=== PATIENT | female | born 1950 | race Hispanic/Latino ===

== ENCOUNTER 2019-05-03 17:52 | Inpatient (IN) | payer MEDICARE ==
[~2019-05-03] VITALS: Ht 157.5 cm; Wt 74.8 kg
[~2019-05-03 17:52] MED LIST: AMLO10TA7 PO; ESOM40CA PO; LEVO500T2 PO; LEVO75TA10 PO; LORA10TA7 PO; METO50TA18 PO; METR500T PO; MONT10TA24 PO; ONDA8TAB12 PO; PRAV20TA4 PO; TRAM50TA4 PO
[2019-05-03 18:55] LABS: BASOPHILS % (AUTO) 0.2 % (0.0-5.0); HEMATOCRIT 32.3 % (36-48); LYMPHOCYTES % (AUTO) 3.2 % (21.0-51.0); MEAN CORPUSCULAR HEMOGLOBIN 30.1 pg (27.0-33.0); MEAN CORPUSCULAR HGB CONC 34.4 g/dL (32.0-36.0); MEAN CORPUSCULAR VOLUME 87.5 fL (79-99); MONOCYTES % (AUTO) 3.7 % (3.0-13.0); NEUTROPHILS % (AUTO) 92.9 % (40.0-77.0); NUCLEATED RED BLOOD CELLS 0.1 % (0.0-0.19); PLATELET COUNT (AUTO) 181 K/uL (130-400); RED BLOOD CELL COUNT(AUTO) 3.69 MIL/uL (4.00-5.50); RED CELL DISTRIBUTION WIDTH 13.7 % (11.0-15.5); WHITE BLOOD COUNT (AUTO) 6.9 K/uL (4.8-10.8)
[2019-05-03 19:30] LABS: ALANINE AMINOTRANSFERASE 13 U/L (12-78); ALBUMIN 3.2 g/dL (3.5-5.0); ASPARTATE AMINOTRANSFERASE 23 U/L (10-37); BILIRUBIN,TOTAL 0.6 mg/dL (0.2-1.0); CARBON DIOXIDE 27 mmol/L (21-32); CHLORIDE 96 mmol/L (101-111); CREATINE KINASE, TOTAL 44 U/L (21-232); GLOMERULAR FILTR. RATE CALC 59 mL/min (>60); GLUCOSE,RANDOM 106 mg/dL (70-105); MYOGLOBIN 65 ng/mL (10-92); SODIUM SERUM 135 mmol/L (136-145); TROPONIN I < 0.04 ng/mL (0.00-0.06); UREA NITROGEN, BLOOD 14 mg/dL (7-18)
[2019-05-03 19:33] LABS: POTASSIUM 2.9 mmol/L (3.5-5.1)
[2019-05-03 19:35] LABS: APPEARANCE,URINE Clear (CLEAR); BILIRUBIN,URINE Negative (NEGATIVE); COLOR,URINE Yellow (YELLOW); GLUCOSE, URINE (UA) Negative (NEGATIVE); KETONES,URINE 15 mg/dL (NEGATIVE); LEUKOCYTE ESTERASE ,URINE Trace (NEGATIVE); NITRATE,URINE Negative (NEGATIVE); OCCULT BLOOD,URINE Moderate (NEGATIVE); PROTEIN,URINE Trace mg/dL (NEGATIVE); UROBILINOGEN,URINE 0.2 mg/dL (0.2-1.0)
[2019-05-03 19:40] LABS: INR 1.11 (0.85-1.15); PROTHROMBIN TIME 11.6 SEC (9.6-11.6)
[2019-05-03 19:42] LABS: BACTERIA,URINE Few /HPF (None Seen); MUCUS,URINE Few LPF (None Seen)
[2019-05-03] MEDS ORDERED: POTASSIUM CHLORIDE 20 MEQ ERTAB PO ONE (19:51)
[2019-05-03] MEDS ORDERED: SODIUM CHLORIDE 0.9% 1000ML 1,000 ML IV ONE (21:15)
[2019-05-03] MEDS ORDERED: IOHEXOL-350 75 ML VIAL IV ONE (21:59)
[2019-05-03] MEDS ORDERED: ZOSYN 3.375GM+NS 50ML 50 ML IV ONE (22:11)
[2019-05-04] MEDS ORDERED: LIDOCAINE HCL-MPF 1% 2ML VIAL IV PRN
[2019-05-04] MEDS ORDERED: POTASSIUM CHLORIDE 10% ELIXIR 20 MEQ/15 ML UDCUP PO PRN
[2019-05-04] MEDS ORDERED: POTASSIUM CHLORIDE 20MEQ/100ML 100 ML IV PRN
--- NOTE | 2019-05-04 03:15 | NUR ---
Admission Assessment Received pt fro ED with daughter around per wheelchair, routine admission assessment done, plan of care discuss, confirmed awareness of all test done in Ed. Pt made aware since her Potassium level was low, I will initiated Potassium protocol, she will be given 1 dose of IVPB Potassium coverage & since reported given in ED K+ 40meq, post Potassium infusion, I will have all her AM blood draws done by 0700. [address] pt [address] Aguilar just recently stop her from taking K+ & Mg supplement as it goes down when he was still actively on Chemo & radiation treatment that was completed February of this year. Pt claimed has been having fever x 3 days on & off reason of her coming in. Pt right breast also noted with some discoloration more on the breast fold area with a point 0.5 CM skin tear pt claimed secondary to radiation therapy. Re: vaccination, stated she prefers to get her Flu shot at Dr. Aguilar's office, current with the Pneumonia vaccination last year.
[2019-05-04 03:30] VITALS: BP 145/76
[2019-05-04] MEDS: SODIUM CHLORIDE 0.9% 1000ML 1,000 ML IV SCH ×2 (03:48→15:18)
[2019-05-04] MEDS ORDERED: [UNRECOGNIZED DRUG - OTHER] PO (04:00)
[2019-05-04] MEDS ORDERED: IRON1CAP32 PO (04:00)
[2019-05-04] MEDS: ZOSYN 3.375GM+NS 50ML 50 ML IV SCH ×3 (06:50→21:25)
[2019-05-04 07:20] LABS: BASOPHILS % (AUTO) 0.2 % (0.0-5.0); EOSINOPHILS % (AUTO) 0.2 % (0.0-8.0); HEMATOCRIT 29.2 % (36-48); LYMPHOCYTES % (AUTO) 6.7 % (21.0-51.0); MEAN CORPUSCULAR HEMOGLOBIN 30.1 pg (27.0-33.0); MEAN CORPUSCULAR HGB CONC 34.7 g/dL (32.0-36.0); MEAN CORPUSCULAR VOLUME 86.5 fL (79-99); MONOCYTES % (AUTO) 5.9 % (3.0-13.0); PLATELET COUNT (AUTO) 169 K/uL (130-400); RED BLOOD CELL COUNT(AUTO) 3.37 MIL/uL (4.00-5.50); WHITE BLOOD COUNT (AUTO) 5.6 K/uL (4.8-10.8)
[2019-05-04 07:36] LABS: ALBUMIN 2.8 g/dL (3.5-5.0); BILIRUBIN,TOTAL 0.4 mg/dL (0.2-1.0); CREATININE 0.9 mg/dL (0.5-1.5); MAGNESIUM 1.5 mg/dL (1.80-2.40); POTASSIUM 3.5 mmol/L (3.5-5.1); TOTAL PROTEIN, SERUM 6.4 g/dL (6.0-8.3)
[2019-05-04 08:00] VITALS: BP 119/75
--- NOTE | 2019-05-04 08:00 | NUR ---
NOTE PATIENT CAME IN LAST NIGHT WITH FEVERS. SHE HAS BEEN RECEIVING CHEMOTHERAPY FOR DX BREAST CANCER. SHE HAS BLOOD CULTURES FROM PORTACATH AND PERIPHERAL STICK. PENDING RESULTS. WILL CONSULT DR APARICIO HER ONCOLOGIST. OTEHRWISE IVF AND IV ABX AND POTASSIUM PROTOCOL FOR NOW.UNDERSTANDS PLAN OF CARE.
[2019-05-04] MEDS: FAMOTIDINE 20MG TAB 20 MG TAB PO SCH ×2 (08:57→21:09)
[2019-05-04] MEDS: MAGNESIUM 2GM PREMIX 50ML 50 ML IV PRN (08:57)
[2019-05-04] MEDS: POTASSIUM CHLORIDE 20 MEQ ERTAB PO PRN ×2 (08:57→12:42)
[2019-05-04 11:00] VITALS: BP 125/63
[2019-05-04] MEDS ORDERED: MAGNESIUM 2GM PREMIX 50ML 50 ML IV PRN (11:00)
[2019-05-04] MEDS ORDERED: ACETAMINOPHEN 325 MG TAB PO PRN (11:00)
[2019-05-04] MEDS ORDERED: ENOXAPARIN SODIUM 30 MG/0.3 ML SQ SCH (11:00)
[2019-05-04 16:00] VITALS: BP 144/63
--- NOTE | 2019-05-04 17:06 | NUR ---
cm note met with patient and states resides athome with spouse, independent with ambulation and adls. no dme. pt drives. dc plan is back home , no dc needs. Addendum: 05/04/19 at 1708 by KELLY HOLT CM Amended: Links added.
--- NOTE | 2019-05-04 19:00 | NUR ---
NOTE REMAINED AFEBRILE DURING THE DAY AND SHE WAS NOT SEEN BY DR CABRERA TODAY. WILL BE SEEN BY DR APARICIO IN AM. OTHERWISE NO COMPLAINS OR DISCOMFORT VOICED.
[2019-05-04 19:56] VITALS: BP 115/66
[2019-05-04] MEDS: METOPROLOL TARTRATE 50 MG TAB PO SCH (21:09)
[2019-05-04] MEDS: ATORVASTATIN CALCIUM 10 MG TABLET PO SCH (21:10)
[2019-05-04 23:38] VITALS: BP 132/52
[2019-05-05 04:00] VITALS: BP 113/51
[2019-05-05] MEDS: ZOSYN 3.375GM+NS 50ML 50 ML IV SCH ×3 (05:30→22:10)
[2019-05-05] MEDS: LEVOTHYROXINE 75 MCG TABLET PO SCH (06:36)
[2019-05-05] MEDS: POTASSIUM CHLORIDE 20 MEQ ERTAB PO PRN (06:37)
[2019-05-05 07:23] LABS: HEMATOCRIT 29.3 % (36-48); MEAN CORPUSCULAR HGB CONC 34.6 g/dL (32.0-36.0); MEAN CORPUSCULAR VOLUME 86.8 fL (79-99); NUCLEATED RED BLOOD CELLS 0.1 % (0.0-0.19); PLATELET COUNT (AUTO) 170 K/uL (130-400); RED BLOOD CELL COUNT(AUTO) 3.37 MIL/uL (4.00-5.50); RED CELL DISTRIBUTION WIDTH 13.6 % (11.0-15.5); WHITE BLOOD COUNT (AUTO) 3.8 K/uL (4.8-10.8)
[2019-05-05] MEDS: FAMOTIDINE 20MG TAB 20 MG TAB PO SCH ×2 (07:47→20:33)
[2019-05-05 07:50] LABS: CREATININE 0.8 mg/dL (0.5-1.5); POTASSIUM 3.1 mmol/L (3.5-5.1)
[2019-05-05 08:00] VITALS: BP 145/65
[2019-05-05] MEDS ORDERED: MONTELUKAST SODIUM 10 MG TAB PO SCH ×2 (09:00→21:00)
[2019-05-05] MEDS: ENOXAPARIN SODIUM 30 MG/0.3 ML SQ SCH (09:00)
[2019-05-05] MEDS ORDERED: LORATADINE 10 MG TABLET PO SCH ×2 (09:00→21:00)
[2019-05-05] MEDS ORDERED: AMLODIPINE BESYLATE 5 MG TAB PO SCH ×2 (09:00→18:00)
[2019-05-05] MEDS: SODIUM CHLORIDE 0.9% 1000ML 1,000 ML IV SCH ×2 (09:16→20:34)
[2019-05-05] MEDS: METOPROLOL TARTRATE 50 MG TAB PO SCH ×2 (09:18→20:33)
[2019-05-05] MEDS ORDERED: POTASSIUM CHLORIDE 20 MEQ ERTAB PO SCH (11:45)
[2019-05-05 12:00] VITALS: BP 119/60
[2019-05-05] MEDS: MAGNESIUM 2GM PREMIX 50ML 50 ML IV PRN (12:07)
[2019-05-05 16:00] VITALS: BP 116/73
[2019-05-05 19:00] VITALS: BP 139/57
[2019-05-05] MEDS: ATORVASTATIN CALCIUM 10 MG TABLET PO SCH (20:33)
[2019-05-05 23:33] VITALS: BP 134/66
[2019-05-06 03:31] VITALS: BP 120/66
[2019-05-06 04:50] LABS: CREATININE 0.7 mg/dL (0.5-1.5); POTASSIUM 3.4 mmol/L (3.5-5.1)
[2019-05-06 04:53] LABS: HEMATOCRIT 28.1 % (36-48); MEAN CORPUSCULAR HEMOGLOBIN 30.6 pg (27.0-33.0); MEAN CORPUSCULAR HGB CONC 35.6 g/dL (32.0-36.0); MEAN CORPUSCULAR VOLUME 85.9 fL (79-99); NUCLEATED RED BLOOD CELLS 0.1 % (0.0-0.19); PLATELET COUNT (AUTO) 185 K/uL (130-400); RED BLOOD CELL COUNT(AUTO) 3.27 MIL/uL (4.00-5.50); WHITE BLOOD COUNT (AUTO) 3.3 K/uL (4.8-10.8)
[2019-05-06] MEDS: SODIUM CHLORIDE 0.9% 1000ML 1,000 ML IV SCH (05:35)
[2019-05-06] MEDS: LEVOTHYROXINE 75 MCG TABLET PO SCH (06:20)
[2019-05-06] MEDS: ZOSYN 3.375GM+NS 50ML 50 ML IV SCH (06:20)
[2019-05-06] MEDS: FAMOTIDINE 20MG TAB 20 MG TAB PO SCH (07:51)
[2019-05-06] MEDS: METOPROLOL TARTRATE 50 MG TAB PO SCH (07:51)
[2019-05-06] MEDS: ENOXAPARIN SODIUM 30 MG/0.3 ML SQ SCH (07:52)
[2019-05-06 07:54] VITALS: BP 123/59
[2019-05-06 07:58] LABS: BASOPHILS % (MANUAL) 2 % (0-2); EOSINOPHILS % (MANUAL) 1 % (1-6); LYMPHOCYTES % (MANUAL) 22 % (22-44); MAN.DIFF COMMENT-IMPRESSION MANUAL DIFFERENTIAL; MONOCYTES % (MANUAL) 7 % (2-9); PLATELET MORPHOLOGY COMMENT ADEQUATE; SEGMENTED NEUTROPHILS % 68 % (40-70)
[2019-05-06] MEDS: POTASSIUM CHLORIDE 20 MEQ ERTAB PO PRN (08:01)
[2019-05-06] MEDS ORDERED: INTEGRA PLUS PO SCH (09:00)
[2019-05-06] MEDS ORDERED: POTA10CA44 PO (09:50)
--- NOTE | 2019-05-06 11:42 | NUR ---
DISCHARGE PATIENT GIVEN DISCHARGE INSTRUCTIONS VIA TEACH BACK. 18G PIV TO LAC DISCONTINUED, TIP INTACT. POTASSIUM FAXED TO [facility] IN [place]. PATIENT TO FOLLOW UP WITH DR. APARICIO ON SUNDAY. PATIENT WHEELED DOWN STAIRS TO LOBBY BY KULDEEP OCONNELL. PATIENT STABLE AT THIS TIME.
== END 2019-05-06 11:50 | disposition home or self-care (01) | DRG 690 ==
LOC: EDH 17:52 → EDHIP 05-04 → 4BH 05-04 02:49
PROVIDERS: ADMIT Family Medicine; ATTEND Family Medicine
DX: N39.0 Urinary tract infection, site not specified (principal); E83.42 Hypomagnesemia; K21.9 Gastro-esophageal reflux disease without esophagitis; E78.5 Hyperlipidemia, unspecified; I10 Essential (primary) hypertension; E87.6 Hypokalemia; E03.9 Hypothyroidism, unspecified; Z85.3 Personal history of malignant neoplasm of breast; Z83.3 Family history of diabetes mellitus; Z80.0 Family history of malignant neoplasm of digestive organs; Z82.49 Family history of ischemic heart disease and other diseases of the circulatory system; Z90.710 Acquired absence of both cervix and uterus; Z90.49 Acquired absence of other specified parts of digestive tract; Z88.2 Allergy status to sulfonamides; Z88.8 Allergy status to other drugs, medicaments and biological substances
CPT/HCPCS: 36415; 71046; 71275; 80048; 80053; 81001; 82550; 83605; 83735; 83874; 84145; 84484; 85025; 85027; 85610; 85730; 87040; 87088; 87804; 87880; 93005; G0378; J1650; J2543; J3475; J3480; J3490; J7030; Q9967

== ENCOUNTER → 2023-06-19 | Outpatient (CLI) | payer MEDICARE ==
[~2023-06-19] MED LIST changes: +AMLO-258 PO; -AMLO10TA7 PO; +IRON1CAP32 PO; -LEVO500T2 PO; -METR500T PO; +MONT-39 PO; -MONT10TA24 PO; -ONDA8TAB12 PO; +POTA10CA85 PO; -TRAM50TA4 PO; +[UNRECOGNIZED DRUG - OTHER] PO
[2023-06-19 12:18] LABS: CREATININE 0.7 mg/dL (0.5-1.5); POTASSIUM 3.6 mmol/L (3.5-5.1)
== END | disposition home or self-care (01) ==
LOC: LAB 10:31
PROVIDERS: ATTEND Internal Medicine Cardiovascular Disease
DX: I10 Essential (primary) hypertension (principal); E78.5 Hyperlipidemia, unspecified
CPT/HCPCS: 36415; 80048

== ENCOUNTER → 2023-08-02 | Outpatient (CLI) | payer MEDICARE ==
[2023-08-02 16:20] LABS: CREATININE 0.8 mg/dL (0.5-1.5); POTASSIUM 3.9 mmol/L (3.5-5.1)
== END | disposition home or self-care (01) ==
LOC: LAB 12:00
PROVIDERS: ATTEND Internal Medicine Cardiovascular Disease
DX: I10 Essential (primary) hypertension (principal)
CPT/HCPCS: 36415; 80048

== ENCOUNTER 2024-11-22 18:12 | Emergency (ER) | payer BC, MEDICARE ==
[~2024-11-22] VITALS: Ht 157.5 cm; Wt 86.2 kg
[~2024-11-22 18:12] MED LIST changes: +CALCIUM MINI PO; +DOCU-116 PO; +FLUT15.845 NASAL; +GABA-529 PO; -IRON1CAP32 PO; +METH-662 PO; +METO-391 PO; -METO50TA18 PO; -POTA10CA85 PO; +TRAM50TA4 PO; -[UNRECOGNIZED DRUG - OTHER] PO
[2024-11-22 18:13] VITALS: BP 145/81; PULSE 90; RESP 14; TEMP 98.7
--- NOTE | 2024-11-22 18:33 | ERN ---
ED Note History of Present Illness Stated Complaint: LEFT SHOULDER PAIN Chief Complaint: Shoulder Injury/Pain Time Seen by MD: 18:17 Dictation: PATIENT IS A 74-YEAR-OLD FEMALE COMING IN TODAY WITH COMPLAINTS OF LEFT SHOULDER PAIN THAT HAS BEEN ON AN OFF FOR THE LAST ONE MONTH. SHE STATES IT STARTS AT THE BASE OF THE NECK AND RUNS DOWN TO HER SHOULDER WORSE WITH RANGE OF MOTION OR ABDUCTION. NO TRAUMA DOES HAVE A HISTORY OF ARTHRITIS. SHE STATES SHE HAS ALREADY BEEN TO A LOCAL URGENT CARE WHO DID X-RAYS AND TOLD HER SHE HAD DEGENERATIVE CHANGES, SHE DOES NOT HAVE A FOLLOW UP APPOINTMENT WITH HER ORTHOPEDIC SURGEON UNTIL THE . SHE IS CONCERNED TONIGHT THOUGH THAT SHE HAS PAIN THAT INTERMITTENTLY RADIATES TO THE LEFT LATERAL CHEST AREA. HER DAUGHTER, IS CONCERNED THAT MAYBE CARDIAC TODAY. NO NAUSEA VOMITING NO SOB NO JAW PAIN Allergies: Coded Allergies: Sulfa (Sulfonamide Antibiotics) (Verified Allergy, Unknown, 02/22/18) Home Meds Active Scripts Methocarbamol (Robaxin) 750 Mg Tab, 500 MG PO TID, #15 TAB 0 Refills Prov:KP JOE MD 11/13/23 Gabapentin (Gabapentin) 100 Mg Capsule, 100 MG PO TID, #15 CAP 0 Refills Prov:KP JOE MD 11/13/23 Docusate Sodium (Colace) 100 Mg Capsule, 100 MG PO BID, #30 CAP 0 Refills Prov:KP JOE MD 11/13/23 Tramadol Hcl (Tramadol HCl) 50 Mg Tablet, 50 MG PO Q6HPRN PRN for PAIN, #28 TAB 0 Refills Prov:KP JOE MD 11/13/23 Reported Medications Fluticasone Propionate (Fluticasone Propionate) 50 Mcg/Actuation [place].susp, 1 SPRAY NASAL AD PRN for CONGESTION 11/08/23 [Calcium Mini] No Conflict Check, 2 TAB PO BID 11/08/23 Metoprolol Succinate (Metoprolol Succinate) 50 Mg Tab.er.24h, 50 MG PO BID, TAB 11/08/23 Montelukast Sodium (Montelukast Sodium) 10 Mg Tablet, 10 MG PO DAILY, TAB 02/22/18 Loratadine (Loratadine) 10 Mg Tablet, 10 MG PO AM, TAB 02/22/18 Pravastatin Sodium (Pravastatin Sodium) 20 Mg Tablet, 20 MG PO HS, TAB 02/22/18 Esomeprazole Magnesium (Nexium) 40 Mg Capsule.dr, 40 MG PO DAILY, CAP 02/22/18 Amlodipine Besylate (Amlodipine Besylate) 10 Mg Tablet, 10 MG PO DAILY, TAB 02/22/18 Levothyroxine Sodium (Levothyroxine Sodium) 75 Mcg Tablet, 75 MCG PO ACBKFST, TAB 02/22/18 Past Medical History Past Medical History: Cancer, Hypertension Additional Past Medical Hx: BREAST CANCER, HERNIA REPAIR Surgical History: Appendectomy, Cholecystectomy History: Not Applicable RN Note Reviewed/Agreed w/PFSH: Yes Review of System Dictation CONSTITUTIONAL: NEGATIVE EXCEPT FOR HPI HEAD/FACE: NEGATIVE EXCEPT FOR HPI EENT: NEGATIVE EXCEPT FOR HPI RESPIRATORY: NEGATIVE EXCEPT FOR HPI GASTROINTESTINAL/ABDOMINAL: NEGATIVE EXCEPT FOR HPI GENITOURINARY: NEGATIVE EXCEPT FOR HPI MUSCULOSKELETAL: NEGATIVE EXCEPT FOR HPI LEFT SHOULDER PAIN RADIATES TO LEFT C HEST INTEGUMENTARY: NEGATIVE EXCEPT FOR HPI NEUROLOGICAL/PSYCH: NEGATIVE EXCEPT FOR HPI HEMATOLOGIC/LYMPHATIC: NEGATIVE EXCEPT FOR HPI ALL SYSTEMS NEGATIVE, EXCEPT NOTED ABOVE. 13 POINT REVIEW OF SYSTEMS ASSESSED AND ALL NEGATIVE EXCEPT FOR ABOVE. Initial Vital Sign VS Vital Signs Date Time Temp Pulse Resp B/P (MAP) Pulse Ox O2 Delivery O2 Flow Rate FiO2 11/22/24 18:13 98.8 90 14 145/81 98 Room Air 0 Physical Exam Dictation VITAL SIGNS REVIEWED GENERAL APPEARANCE: ALERT, ORIENTED X 3, MODERATE ACUTE DISTRESS, WELL DEVELOPED, NOURISHED. HEAD AND FACE: NON-TRAUMATIC. EYES: PERRL, PINK CONJUNCTIVAS, EYELID NO TRAUMA, ANTERIOR CHAMBER WITH ARCUS SENILIS. EARS: PINNAS INTACT AND NO SIGNS OF TRAUMA OR ERYTHEMA EAR CANALS CLEAR AND NO DISCHARGE TM NO ERYTHEMA NOSE: NO DISCHARGE, NO BLEEDING. OROPHARYNX: MOUTH NORMAL, TONGUE PINK, PHARYNX CLEAR,NO ERYTHEMA, TONSILS NO EXUDATES, NO ABSCESSES NOTED, MUCOUS M EMBRANE MOIST NECK: SUPPLE, NON-TENDER, NO THYROMEGALY, NO MASSES, NO JVD, NO BRUITS BREAST:DEFERRED CHEST:NO TENDERNESS, NO CREPITUS, NO PARADOXICAL MOVEMENT, NO RETRACTIONS LUNGS:CLEAR, WELL-VENTILATED, SYMMETRIC, NO RALES, NO WHEEZING, NO RHONCHI, NO STRIDOR, GOOD BREATH SOUNDS BILATERALLY HEART: REGULAR RATE, REGULAR RHYTHM, NO MURMUR, NO GALLOPS VASCULAR: NO PERIPHERAL EDEMA, ABDOMEN: SOFT, POSITIVE BOWEL SOUNDS, NONDISTENDED, NO GUARDING, NONTENDER, NO REBOUND, NO MASSES NO HEPATOMEGALY, NO SPLENOMEGALY, NO BANSAL'S SIGN, NO HERNIAS. RECTAL: DEFERRED GENITAL: DEFERRED NEUROLOGICAL: NORMAL SPEECH, MOTOR FUNCTION INTACT, SENSORY FUNCTION INTACT MUSCULOSKELETAL: NECK NONTENDER, FULL RANGE OF MOTION, BACK NONTENDER, FULL RANGE OF MOTION, EXTREMITIES: DIFFUSE LEFT SHOULDER PAIN FROM PARASPINOUS DOWN TO DELTOID. DECREASED RANGE OF MOTION SECONDARY TO PAIN. SKIN: COLOR PINK, DRY, NO TURGOR, NO RASH, NO LACERATIONS, NO ABRASIONS, NO CONTUSIONS. LYMPHATIC: DEFERRED Results (Laboratory/Radiology) Laboratory/Radiology Laboratory Tests Test 11/22/24 19:08 White Blood Count 6.5 K/uL (4.8-10.8) Red Blood Count 4.31 MIL/uL (4.00-5.50) Hemoglobin 12.5 g/dL (12.0-16.0) Hematocrit 37.1 % (36-48) Mean Corpuscular Volume 86.1 fL (79-99) Mean Corpuscular Hemoglobin 29.0 pg (27.0-33.0) Mean Corpuscular Hemoglobin Concent 33.7 g/dL (32.0-36.0) Red Cell Distribution Width 13.4 % (11.0-15.5) Platelet Count 257 K/uL (130-400) Mean Platelet Volume 9.9 fL (7.5-10.5) Immature Granulocyte % (Auto) 0.3 % (0-1) Neutrophils (%) (Auto) 74.4 % (40.0-77.0) Lymphocytes (%) (Auto) 15.8 % (21.0-51.0) L Monocytes (%) (Auto) 7.2 % (3.0-13.0) Eosinophils (%) (Auto) 1.7 % (0.0-8.0) Basophils (%) (Auto) 0.6 % (0.0-5.0) Neutrophils # (Auto) 4.9 K/uL (1.8-7.7) Lymphocytes # (Auto) 1.0 K/uL (1.0-4.8) Monocytes # (Auto) 0.5 K/uL (0.1-1.0) Eosinophils # (Auto) 0.11 K/uL (0.00-0.70) Basophils # (Auto) 0.04 K/uL (0.00-0.20) Absolute Immature Granulocyte (auto 0.02 K/uL (0-1) Nucleated Red Blood Cells 0.0 % (0.0-0.19) Sodium Level 137 mmol/L (136-145) Potassium Level 3.1 mmol/L (3.5-5.1) L Chloride Level 99 mmol/L (101-111) L Carbon Dioxide Level 33 mmol/L (21-32) H Blood Urea Nitrogen 12 mg/dL (7-18) Creatinine 0.9 mg/dL (0.5-1.0) Glomerular Filtration Rate Calc 68 mL/min (>90) Random Glucose 98 mg/dL (70-105) Total Calcium 8.8 mg/dL (8.5-10.1) Troponin I High Sensitivity 8 ng/L (4-50) Labs Reviewed?: Yes EKG Comment: EKG sinus rhythm/heart rate 78/right bundle branch block/axis normal/no acute change Review of medical record shows patient had sinus rhythm with a right bundle branch block 11/08/2023 No acute changes ED Course ED Course Orders Procedure Category Date Status Time Cbc With Differential LAB 11/22/24 Complete 18:28 Troponin I High LAB 11/22/24 Complete Sensitivity 18:28 12 Lead Ekg Tracing- EKG 11/22/24 Complete Technical 18:28 Basic Metabolic Panel LAB 11/22/24 Complete 18:28 Dexamethasone 4mg/Ml PHA 11/22/24 Complete 1ml Vial (Dexametha 18:30 Hydrocodone/Apap PHA 11/22/24 Complete 5/325 (Mason 5/325mg) 18:30 Potassium Bicarb/Cit PHA 11/22/24 In Process Ac 25meq (K-Lyte Ta 20:00 Current Medications Medications (Trade) Dose Ordered Sig/Fernandez Route PRN Reason Start Time Stop Time Status Last Admin Dose Admin Acetaminophen/ Hydrocodone Bitart (NORco 5/325MG) 1 tab ONCE ONCE PO 11/22/24 18:30 11/22/24 18:32 DC Dexamethasone Sodium Phosphate (dexaMETHasone 4MG/ML 1ML VIAL) 8 mg ONCE ONCE IM 11/22/24 18:30 4/26/25 18:32 DC Potassium Bicarbonate (K-Lyte Tablet Eff 25 Meq Tablet.eff) 25 meq ONCE ONCE PO 11/22/24 20:00 11/22/24 20:01 Vital Signs Date Time Temp Pulse Resp B/P (MAP) Pulse Ox O2 Delivery O2 Flow Rate FiO2 11/22/24 18:13 98.8 90 14 145/81 98 Room Air 0 1999/patient will be discharged home with hypokalemia chronic right shoulder pain. In addition she has a an abnormal EKG with normal troponin . Potassium we will be replaced patient will meet aware she is dehydrated we will need I more fluids. She does not wish to be placed in the hospital and says she has an appointment with her doctor at [facility] Sunday and can not missed the appointment. She was reassured that there has been no acute cardiac event HEART Score Response (Comments) Value Age: > 65yrs (+2) 2 Risk Factors: 3+ risk factors (+2) 2 Initial Troponin: Normal limit (0) 0 Total 4 Medical Decision Making MDM MDM: Differential diagnosis: ACS/AMI/electrolyte imbalance/dehydration/chronic shoulder pain Rationale: Tests considered and ordered secondary to shared decision making include: EKG/labs Previous outside records reviewed: Old ER visits. Risk of complication and/or morbidity or mortality of patient management: None Medications-Per medication reconciliation Need for hospitalization: Patient does not meet criteria for hospitalization. Patient refuses, has not appointment at [facility] Sunday and can not miss appointment. Need for emergency major/minor surgery: No There are no social concerns with this patient. Prescription drug management Tylenol with codeine Prescriptions will include symptomatic care Patient's prior external medical records from other ER visits were reviewed by me as indicated. Prior testing and results from previous visits were reviewed. Prior tests were taken into account with medical decision making and resource utilization, independent historian/historians were used to obtain complete medical history. I independently interpreted the test that were performed, results were reviewed by me and considered findings on radiology if ordered. Medical management and examination interpretation discussions were had by me with other qualified healthcare professionals as indicated for the patient's care. DX & DISP Disposition: Discharge Departure Impression: Primary Impression: Chronic left shoulder pain Additional Impressions: Hypokalemia, Dehydration, Right bundle branch block (RBBB) determined by electrocardiography, Atypical chest pain Condition: Stable Scripts Acetaminophen with Codeine (Acetaminophen-Cod #3 Tablet) 300 Mg-30 Mg Tablet 1 TAB PO Q4H PRN for Moderate to severe, #20 TAB 0 Refills Prov: SRAVANI العراقي NP 11/22/24 Additional Instructions: Follow-up with primary care provider in 1 to 2 days. Take medications as directed here in the emergency room. Okay to continue home medications unless o therwise discussed during your visit in the emergency room today. Return to your nearest emergency room if symptoms worsen or if there is no improvement. Call 911 if you need immediate assistance. Take Tylenol or Motrin [id number] as needed and if no contraindications are present. Increase oral hydration. A wound culture or urine culture was ordered here in the emergency room department please follow-up with primary care provider and advise them to get repeat ports from our facility. If you had any Cedric wrap/splints that were applied here, please do not remove them until you see your primary care or specialty. Continue your medications for your left shoulder pain. Take Tylenol with codeine as needed for severe pain. Increase your water intake. Keep your appointment with your orthopedic surgeon in the next several days or or call orthopedic surgeon for appointment. Referrals: LEANNE GAMA (PCP) FAHEEM TALLEY MD Time of Disposition: 20:01 I have reviewed the case, and I agree with, Diagnosis and Plan SRAVANI العراقي NP Nov 22, 2024 18:33
[2024-11-22 19:12] LABS: BASOPHILS # (AUTO) 0.04 K/uL (0.00-0.20); BASOPHILS % (AUTO) 0.6 % (0.0-5.0); EOSINOPHILS # (AUTO) 0.11 K/uL (0.00-0.70); EOSINOPHILS % (AUTO) 1.7 % (0.0-8.0); HEMATOCRIT 37.1 % (36-48); IMMATURE GRANULOCYTE ABSOLUTE 0.02 K/uL (0-1); LYMPHOCYTES % (AUTO) 15.8 % (21.0-51.0); MEAN CORPUSCULAR HGB CONC 33.7 g/dL (32.0-36.0); MEAN CORPUSCULAR VOLUME 86.1 fL (79-99); MONOCYTES # (AUTO) 0.5 K/uL (0.1-1.0); MONOCYTES % (AUTO) 7.2 % (3.0-13.0); NEUTROPHILS # (AUTO) 4.9 K/uL (1.8-7.7); NEUTROPHILS % (AUTO) 74.4 % (40.0-77.0); PLATELET COUNT (AUTO) 257 K/uL (130-400); RED BLOOD CELL COUNT(AUTO) 4.31 MIL/uL (4.00-5.50); RED CELL DISTRIBUTION WIDTH 13.4 % (11.0-15.5); WHITE BLOOD COUNT (AUTO) 6.5 K/uL (4.8-10.8)
--- NOTE | 2024-11-22 19:16 | EKG ---
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
[2024-11-22 19:20] LABS: CREATININE 0.9 mg/dL (0.5-1.0); POTASSIUM 3.1 mmol/L (3.5-5.1)
[2024-11-22] MEDS ORDERED: ACET-2079 PO (20:02)
[2024-11-22] MEDS: PoTASSium BIcarbonate/CIT AC 25 MEQ TABLET.EFF PO ONE (20:32)
[2024-11-22] MEDS: dexaMETHasone SOD PHOSPHATE 4 MG/ML 1ML VIAL IM ONE (20:32)
[2024-11-22] MEDS: HYDROcodone/APAP 5/325 1 TAB TABLET PO ONE (20:33)
== END 2024-11-22 20:33 | disposition home or self-care (01) ==
LOC: EDH 18:12
DX: G89.29 Other chronic pain (principal); M25.512 Pain in left shoulder; E87.6 Hypokalemia; E86.0 Dehydration; I45.10 Unspecified right bundle-branch block; R07.89 Other chest pain; I10 Essential (primary) hypertension; Z79.899 Other long term (current) drug therapy; Z85.3 Personal history of malignant neoplasm of breast; Z88.2 Allergy status to sulfonamides; Z90.49 Acquired absence of other specified parts of digestive tract; Z98.890 Other specified postprocedural states
CPT/HCPCS: 99284; 84484; 80048; 85025; 36415; 96372; 93005; J1100

== ENCOUNTER 2024-12-18 17:07 | Emergency (ER) | payer MEDICARE ==
[~2024-12-18] VITALS: Ht 152.4 cm; Wt 86.2 kg
[~2024-12-18 17:07] MED LIST changes: +ACET-2079 PO
--- NOTE | 2024-12-18 17:41 | EKG ---
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1950 Requested By: RC MURPHY Order Number: [id number] Reading MD: Shavonne Vazquez Measurements Intervals [place] Rate: 81 P: 30 AK: 155 QRS: -6 QRSD: 154 T: -13 QT: 402 QTc: 485 Interpretive Statements Sinus rhythm Atrial premature complex Sinus pause Right bundle branch block Inferior infarct, age indeterminate Compared to ECG 11/22/2024 19:13:57 Atrial premature complex(es) now present Sinus pause or arrest now present Sinus arrhythmia no longer present Myocardial infarct finding still present Electronically Signed On 12-19-2024 14:47:14 CDT by Shavonne Vazquez Please click the below link to view image of tracing.
--- NOTE | 2024-12-18 17:58 | HMCIMG ---
PORTABLE CHEST RADIOGRAPH INDICATION: cp COMPARISON: 05/03/2019 CTA chest FINDINGS: Heart size is normal. Mild calcific plaque is present along the aortic arch chong. The pulmonary vascularity and nydia appear normal. No abnormal pulmonary parenchymal opacity or consolidation identified. No significant pleural effusion noted. No pneumothorax detected. IMPRESSION: No radiographic evidence for any acute cardiopulmonary process.
[2024-12-18 18:02] LABS: BASOPHILS # (AUTO) 0.04 K/uL (0.00-0.20); BASOPHILS % (AUTO) 0.6 % (0.0-5.0); EOSINOPHILS # (AUTO) 0.08 K/uL (0.00-0.70); EOSINOPHILS % (AUTO) 1.3 % (0.0-8.0); HEMATOCRIT 33.7 % (36-48); IMMATURE GRANULOCYTE ABSOLUTE 0.03 K/uL (0-1); LYMPHOCYTES # (AUTO) 0.9 K/uL (1.0-4.8); LYMPHOCYTES % (AUTO) 13.6 % (21.0-51.0); MEAN CORPUSCULAR HEMOGLOBIN 29.5 pg (27.0-33.0); MEAN CORPUSCULAR HGB CONC 34.4 g/dL (32.0-36.0); MEAN CORPUSCULAR VOLUME 85.8 fL (79-99); MONOCYTES # (AUTO) 0.5 K/uL (0.1-1.0); NEUTROPHILS # (AUTO) 4.8 K/uL (1.8-7.7); PLATELET COUNT (AUTO) 241 K/uL (130-400); RED BLOOD CELL COUNT(AUTO) 3.93 MIL/uL (4.00-5.50); RED CELL DISTRIBUTION WIDTH 13.9 % (11.0-15.5); WHITE BLOOD COUNT (AUTO) 6.3 K/uL (4.8-10.8)
[2024-12-18 18:17] LABS: CREATININE 0.8 mg/dL (0.5-1.0); MAGNESIUM 1.5 mg/dL (1.80-2.40)
[2024-12-18 18:56] LABS: B-TYPE NATRIURETIC PEPTIDE 88 pg/mL (0-100)
--- NOTE | 2024-12-18 19:25 | NUR ---
PT MOVED FORM LOBBY INTO FAST TRACK ASSUMED CARE AT THIS TIME
--- NOTE | 2024-12-18 19:41 | ERN ---
ED Note History of Present Illness Stated Complaint: SKIP PULSE Chief Complaint: Anxiety/Panic Attack Time Seen by MD: 17:10 Time Seen by Midlevel: 17:10 Dictation: The patient is a 74-year-old female with a history of hypertension, hypothyroidism who presents to the emergency department with complaints of palpitations onset 4:30 p.m.. Patient reports that she has been told that she has not arrhythmias sees Dr. Cesar reports she has pauses. Patient denies any chest pain, nausea or vomiting denies shortness of breath. Denies any other associated symptoms. Allergies: Coded Allergies: Sulfa (Sulfonamide Antibiotics) (Verified Allergy, Unknown, 02/22/18) Home Meds Active Scripts Acetaminophen with Codeine (Acetaminophen-Cod #3 Tablet) 300 Mg-30 Mg Tablet, 1 TAB PO Q4H PRN for Moderate to severe, #20 TAB 0 Refills Prov:SRAVANI الع[employer]ي [employer] 11/22/24 Methocarbamol (Robaxin) 750 Mg Tab, 500 MG PO TID, #15 TAB 0 Refills Prov:KP JOE MD 11/13/23 Gabapentin (Gabapentin) 100 Mg Capsule, 100 MG PO TID, #15 CAP 0 Refills Prov:KP JOE MD 11/13/23 Docusate Sodium (Colace) 100 Mg Capsule, 100 MG PO BID, #30 CAP 0 Refills Prov:KP JOE MD 11/13/23 Tramadol Hcl (Tramadol HCl) 50 Mg Tablet, 50 MG PO Q6HPRN PRN for PAIN, #28 TAB 0 Refills Prov:KP JOE MD 11/13/23 Reported Medications Fluticasone Propionate (Fluticasone Propionate) 50 Mcg/Actuation [place].susp, 1 SPRAY NASAL AD PRN for CONGESTION 11/08/23 [Calcium Mini] No Conflict Check, 2 TAB PO BID 11/08/23 Metoprolol Succinate (Metoprolol Succinate) 50 Mg Tab.er.24h, 50 MG PO BID, TAB 11/08/23 Montelukast Sodium (Montelukast Sodium) 10 Mg Tablet, 10 MG PO DAILY, TAB 02/22/18 Loratadine (Loratadine) 10 Mg Tablet, 10 MG PO AM, TAB 02/22/18 Pravastatin Sodium (Pravastatin Sodium) 20 Mg Tablet, 20 MG PO HS, TAB 02/22/18 Esomeprazole Magnesium (Nexium) 40 Mg Capsule.dr, 40 MG PO DAILY, CAP 02/22/18 Amlodipine Besylate (Amlodipine Besylate) 10 Mg Tablet, 10 MG PO DAILY, TAB 02/22/18 Levothyroxine Sodium (Levothyroxine Sodium) 75 Mcg Tablet, 75 MCG PO ACBKFST, TAB 02/22/18 Past Medical History Past Medical History: Cancer, Hypertension Additional Past Medical Hx: BREAST CANCER, HERNIA REPAIR Surgical History: Appendectomy, Cholecystectomy History: Not Applicable RN Note Reviewed/Agreed w/PFSH: Yes Review of System Dictation Constitutional: Negative for fever,chills, and weight loss Eyes: Negative for injury, pain,redness, and discharge ENT: Negative for injury,pain or swelling Cardiovascular: Negative for chest pain,and edema positive for palpitations Respiratory: Negative for shortness of breath, cough, and wheezing, Abdomen/GI: Negative for abdominal pain, nausea, vomiting, diarrhea, and constipation Back: Negative for injury and pain : Negative for injury, bleeding and discharge MS/Extremity: Negative for injury and deformity Skin: Negative for rash, and discoloration Neuro: Negative for headache, weakness, numbness, tingling, and seizure Psych: Negative for suicide ideation, homicidal ideation, and hallucinations Initial Vital Sign VS Vital Signs Date Time Temp Pulse Resp B/P (MAP) Pulse Ox O2 Delivery O2 Flow Rate FiO2 12/18/24 17:11 98.2 94 18 153/71 100 Room Air 12/18/24 20:47 0 21 Physical Exam Dictation Vital Signs reviewed General Appearance: Alert, oriented x 3, no acute distress, well developed, nourished. Head and Face: non-traumatic. Eyes: PERRL, pink conjunctivas, eyelid no trauma, anterior chamber with arcus senilis. Ears: Pinnas intact and no signs of trauma or erythema ear canals clear and no discharge TM no erythema Nose: No discharge, no bleeding. Oropharynx: Mouth normal, tongue pink. pharynx clear,no erythema, tonsils no exudates, no abscesses noted, mucous membrane moist Neck: Supple, non-tender, no thyromegaly, no masses, no JVD, no bruits Breast:Deferred Chest:No tenderness, no crepitus, no paradoxical movement, no retractions Lungs:Clear, well-ventilated, symmetric, no rales, no wheezing, no rhonchi, no stridor, good breath sounds bilaterally Heart: Regular rate, regular rhythm, no murmur, no gallops Vascular: no peripheral edema, Abdomen: Soft, positive bowel sounds, nondistended, no guarding, nontender, no rebound, no masses no hepatomegaly, no splenomegaly, no Peralta's sign, no hernias. Rectal: Deferred Genital: Deferred Neurological: Normal speech, motor function intact, sensory function intact Musculoskeletal: Neck nontender, full range of motion, back nontender, full range of motion, Extremities: nontender, full range of motion Skin: Color pink, dry, no turgor, no rash, no lacerations, no abrasions, no contusions. Lymphatic: Deferred Results (Laboratory/Radiology) Laboratory/Radiology Laboratory Tests Test 12/18/24 17:55 12/18/24 21:15 White Blood Count 6.3 K/uL (4.8-10.8) Red Blood Count 3.93 MIL/uL (4.00-5.50) L Hemoglobin 11.6 g/dL (12.0-16.0) L Hematocrit 33.7 % (36-48) L Mean Corpuscular Volume 85.8 fL (79-99) Mean Corpuscular Hemoglobin 29.5 pg (27.0-33.0) Mean Corpuscular Hemoglobin Concent 34.4 g/dL (32.0-36.0) Red Cell Distribution Width 13.9 % (11.0-15.5) Platelet Count 241 K/uL (130-400) Mean Platelet Volume 9.6 fL (7.5-10.5) Immature Granulocyte % (Auto) 0.5 % (0-1) Neutrophils (%) (Auto) 76.0 % (40.0-77.0) Lymphocytes (%) (Auto) 13.6 % (21.0-51.0) L Monocytes (%) (Auto) 8.0 % (3.0-13.0) Eosinophils (%) (Auto) 1.3 % (0.0-8.0) Basophils (%) (Auto) 0.6 % (0.0-5.0) Neutrophils # (Auto) 4.8 K/uL (1.8-7.7) Lymphocytes # (Auto) 0.9 K/uL (1.0-4.8) L Monocytes # (Auto) 0.5 K/uL (0.1-1.0) Eosinophils # (Auto) 0.08 K/uL (0.00-0.70) Basophils # (Auto) 0.04 K/uL (0.00-0.20) Absolute Immature Granulocyte (auto 0.03 K/uL (0-1) Nucleated Red Blood Cells 0.0 % (0.0-0.19) Sodium Level 134 mmol/L (136-145) L Potassium Level 3.0 mmol/L (3.5-5.1) *L Chloride Level 96 mmol/L (101-111) L Carbon Dioxide Level 31 mmol/L (21-32) Blood Urea Nitrogen 16 mg/dL (7-18) Creatinine 0.8 mg/dL (0.5-1.0) Glomerular Filtration Rate Calc 78 mL/min (>90) Random Glucose 103 mg/dL (70-105) Total Calcium 8.3 mg/dL (8.5-10.1) L Magnesium Level 1.50 mg/dL (1.80-2.40) L Total Creatine Kinase 74 U/L (21-232) # Troponin I High Sensitivity 7 ng/L (4-50) B-Type Natriuretic Peptide 88 pg/mL (0-100) Urine Color COLORLESS (YELLOW) Urine Appearance CLEAR (CLEAR) Urine pH 6.5 (5.0-8.0) Urine Specific [place] 1.002 (1.001-1.031) Urine Protein NEGATIVE mg/dL (NEGATIVE) Urine Glucose (UA) NEGATIVE mg/dL (NEGATIVE) Urine Ketones NEGATIVE mg/dL (NEGATIVE) Urine Occult Blood NEGATIVE (NEGATIVE) Urine Nitrate NEGATIVE (NEGATIVE) Urine Bilirubin NEGATIVE mg/dL (NEGATIVE) Urine Urobilinogen 0.2 mg/dL (0.2-1.0) Urine Leukocyte Esterase NEGATIVE [place]/uL REASON: cp ORDERING PHYSICIAN: RC MURPHY PROCEDURE: CXR1VW - CHEST 1VW PORTABLE CHEST RADIOGRAPH INDICATION: cp COMPARISON: 05/03/2019 CTA chest FINDINGS: Heart size is normal. Mild calcific plaque is present along the aortic arch chong. The pulmonary vascularity and nydia appear normal. No abnormal pulmonary parenchymal opacity or consolidation identified. No significant pleural effusion noted. No pneumothorax detected. IMPRESSION: No radiographic evidence for any acute cardiopulmonary process. Labs Reviewed?: Yes (Sinus rhythm) EKG: (+) rhythm EKG Comment: Date:12/18/2024 Time:1739 Ventricular rate:81 OK interval:155 QRS duration:154 QT/QTc:402 EKG interpretation: Sinus rhythm, right bundle-branch block Reviewed by ED Attending, no STEMI ED Course ED Course Orders Procedure Category Date Status Time Cbc With Differential LAB 12/18/24 Complete 17:22 B-Type Natriuretic LAB 12/18/24 Complete Peptide 17:22 Chest 1vw RAD 12/18/24 Resulted 17:22 12 Lead Ekg Tracing- EKG 12/18/24 Complete Technical 17:22 Magnesium LAB 12/18/24 Complete 17:22 Creatine Kinase, Total LAB 12/18/24 Complete 17:22 Troponin I High LAB 12/18/24 Complete Sensitivity 17:22 Basic Metabolic Panel LAB 12/18/24 Complete 17:22 Urinalysis Profile LAB 12/18/24 Complete 18:38 Potassium Bicarb/Cit PHA 12/18/24 Complete Ac 25meq (K-Lyte Ta 19:00 Magnesium 2gm Premix PHA 12/18/24 In Process 50ml (Magnesium 2gm 19:00 0.9%Nacl 1000ml (Ns PHA 12/18/24 Complete 1000ml) 19:00 Current Medications Medications (Trade) Dose Ordered Sig/Fernandez Route PRN Reason Start Time Stop Time Status Last Admin Dose Admin Magnesium Sulfate 50 ml @ 0 mls/hr PROTOCOL IV 12/18/24 19:00 01/17/25 18:59 12/18/24 20:14 Potassium Bicarbonate (K-Lyte Tablet Eff 25 Meq Tablet.eff) 50 meq ONCE ONCE PO 12/18/24 19:00 12/18/24 19:01 DC 12/18/24 20:13 Sodium Chloride 1,000 ml @ 0 mls/hr ONCE ONCE IV 12/18/24 19:00 12/18/24 19:01 DC 12/18/24 20:13 Vital Signs Date Time Temp Pulse Resp B/P (MAP) Pulse Ox O2 Delivery O2 Flow Rate FiO2 12/18/24 20:47 98.2 88 18 151/67 100 Room Air* 0 21 12/18/24 17:11 98.2 94 18 153/71 100 Room Air Medical Decision Making MDM The patient is a 74-year-old female with a history of hypertension, hypothyroidism who presents to the emergency department with complaints of palpitations onset 4:30 p.m.. Patient reports that she has been told that she has not arrhythmias sees Dr. Cesar reports she has pauses. Patient denies any chest pain, nausea or vomiting denies shortness of breath. Denies any other associated symptoms. CBC showed no leukocytosis, mild normocytic anemia, chemistry showed mild hyponatremia, hypokalemia, mild hypochloremia, hypomagnesemia. Patient's electrolytes were replaced in ER. Patient was given some IV fluids Care was transferred to [facility] at 8:00 p.m. on 12/18/2024. Patient was rehydrated with IV fluids, p.o., 2 g of magnesium was given IV. Patient will be discharged home with a strict return precautions Differential diagnosis: Tachyarrhythmia, electrolyte imbalance, anxiety, ACS, dehydration Need for hospitalization: Patient does not meet criteria for hospitalization. There are no social concerns with this patient. DX & DISP Disposition: Discharge Departure Impression: Primary Impression: Mild dehydration Additional Impressions: Hypokalemia, Hypomagnesemia Condition: Stable Referrals: LEANNE GAMA (PCP) I have reviewed the case, and I agree with, Diagnosis and Plan I performed the substantive portion of the visit. I have reviewed and per sonally made and approve the management plan that is documented in the note by myself or the GUERO. I acknowledge for responsibility for the patient's management plan. RC MURPHY December 18, 2024 19:40 AVIS KING December 18, 2024 21:38
[2024-12-18] MEDS: PoTASSium BIcarbonate/CIT AC 25 MEQ TABLET.EFF PO ONE (20:13)
[2024-12-18] MEDS: 0.9%NACL 1000ML 1,000 ML IV ONE (20:13)
[2024-12-18] MEDS: MAGNESIUM 2GM PREMIX 50ML 50 ML IV SCH (20:14)
[2024-12-18 20:47] VITALS: BP 151/67; PULSE 88; RESP 18; TEMP 98.2; O2SAT 100
[2024-12-18 21:28] LABS: APPEARANCE,URINE CLEAR (CLEAR); BILIRUBIN,URINE NEGATIVE (NEGATIVE); COLOR,URINE COLORLESS (YELLOW); GLUCOSE, URINE (UA) NEGATIVE (NEGATIVE); KETONES,URINE NEGATIVE (NEGATIVE); LEUKOCYTE ESTERASE ,URINE NEGATIVE Leu/uL (NEGATIVE); NITRATE,URINE NEGATIVE (NEGATIVE); OCCULT BLOOD,URINE NEGATIVE (NEGATIVE); PH,URINE 6.5 (5.0-8.0); PROTEIN,URINE NEGATIVE (NEGATIVE); UROBILINOGEN,URINE 0.2 mg/dL (0.2-1.0)
[2024-12-18 21:29] LABS: ADD UA MICROSCOPIC NO
== END 2024-12-18 22:07 | disposition home or self-care (01) ==
LOC: EDH 17:07
DX: E86.0 Dehydration (principal); E83.42 Hypomagnesemia; E87.6 Hypokalemia; F41.9 Anxiety disorder, unspecified; I10 Essential (primary) hypertension; I21.9 Acute myocardial infarction, unspecified; Z79.899 Other long term (current) drug therapy; Z88.2 Allergy status to sulfonamides; Z90.49 Acquired absence of other specified parts of digestive tract; Z98.890 Other specified postprocedural states
CPT/HCPCS: 99285; 96365; 71045; 96366; 82550; 83735; 84484; 80048; 83880; 85025; 81003; 36415; 93005; J3475; J7030

== ENCOUNTER 2025-03-05 18:19 | Emergency (ER) | payer MEDICARE ==
[~2025-03-05] VITALS: Ht 152.4 cm; Wt 86.2 kg
[~2025-03-05 18:19] MED LIST changes: -ACET-2079 PO; +MULT-1250 PO; +NITR0.4T50 SL; -PRAV20TA4 PO; +PRAV20TA59 PO; -TRAM50TA4 PO; +VIT1CAPS26 PO
[2025-03-05 19:25] LABS: IMMATURE GRANULOCYTE ABSOLUTE 0.02 K/uL (0-1); NUCLEATED RED BLOOD CELLS 0.0 % (0.0-0.19); PLATELET COUNT (AUTO) 268 K/uL (130-400); RED BLOOD CELL COUNT(AUTO) 3.90 MIL/uL (4.00-5.50); RED CELL DISTRIBUTION WIDTH 13.2 % (11.0-15.5); WHITE BLOOD COUNT (AUTO) 5.9 K/uL (4.8-10.8)
[2025-03-05 19:33] LABS: CREATININE 0.7 mg/dL (0.5-1.0); GLOMERULAR FILTR. RATE CALC 91.0 mL/min (>90); GLUCOSE,RANDOM 95.0 mg/dL (70-105); SODIUM SERUM 133.0 mmol/L (136-145); UREA NITROGEN, BLOOD 16.0 mg/dL (7-18)
--- NOTE | 2025-03-05 19:52 | ERN ---
General Chief Complaint: Upper Extremity Pain/Injury Stated Complaint: LEFT ARM PAIN Time Seen by MD: 18:25 Time Seen by Midlevel: 18:25 Source: patient History of Present Illness Initial Comments The patient is a 74-year-old female with a chronic history of left shoulder pain presenting to the emergency department for evaluation of left upper arm pain. T he patient reports having a stent placed several weeks ago. During her hospitalization she was given Lovenox injection on her left arm and believes it may have exacerbated her chronic pain. Given her recent stent placement she was concerned that her left arm pain is related to her heart so she decided to come in for further evaluation. Allergies: Coded Allergies: Sulfa (Sulfonamide Antibiotics) (Verified Allergy, Unknown, 02/22/18) Home Meds Active Scripts Methocarbamol (Robaxin) 750 Mg Tab, 500 MG PO TID, #15 TAB 0 Refills Prov:KP JOE MD 11/13/23 Gabapentin (Gabapentin) 100 Mg Capsule, 100 MG PO TID, #15 CAP 0 Refills Prov:KP JOE MD 11/13/23 Docusate Sodium (Colace) 100 Mg Capsule, 100 MG PO BID, #30 CAP 0 Refills Prov:KP JOE MD 11/13/23 Reported Medications Nitroglycerin (Nitroglycerin) 0.4 Mg Tab.subl, 1 TAB SL AD for chest pain, #25 TAB 0 Refills 1st sign of attack; may repeat every 5 mins; if pain persists after 3 in 15 min, medical attention is recommended 02/15/25 Vit B12/FA/Pyridoxine HCl/Aa15 (Glycotrol Capsule) 500 Mcg-400 Mcg-10 Mg-400 Mg Capsule, 1 CAP PO DAILY for 30 Days, #30 CAP 0 Refills 02/15/25 Multivit-Min/Iron/FA/Vit K/Lut (Centrum Silver Women Tablet) 8 Mg Iron-400 Mcg- 50 Mcg-300 Mcg Tablet, 1 TAB PO DAILY for 30 Days, #30 TAB 0 Refills 02/15/25 Fluticasone Propionate (Fluticasone Propionate) 50 Mcg/Actuation [place].susp, 1 SPRAY NASAL AD PRN for CONGESTION 11/08/23 [Calcium Mini] No Conflict Check, 2 TAB PO BID 11/08/23 Metoprolol Succinate (Metoprolol Succinate) 50 Mg Tab.er.24h, 50 MG PO BID, TAB 11/08/23 Montelukast Sodium (Montelukast Sodium) 10 Mg Tablet, 10 MG PO DAILY, TAB 02/22/18 Loratadine (Loratadine) 10 Mg Tablet, 10 MG PO AM, TAB 02/22/18 Pravastatin Sodium (Pravastatin Sodium) 20 Mg Tablet, 20 MG PO HS, TAB 02/22/18 Esomeprazole Magnesium (Nexium) 40 Mg Capsule.dr, 40 MG PO DAILY, CAP 02/22/18 Amlodipine Besylate (Amlodipine Besylate) 10 Mg Tablet, 10 MG PO DAILY, TAB 02/22/18 Levothyroxine Sodium (Levothyroxine Sodium) 75 Mcg Tablet, 75 MCG PO ACBKFST, TAB 02/22/18 Past Medical History Past Medical History: GERD, High Cholesterol, Hypertension, Hypothyroid Medical History Other: BREAST CANCER RIGHT, HERNIA REPAIR, IRREGULAR HEART RATE Past Surgical History: Other Surgical History Other: s/p cardiac stent 02/17/25 Family History Family History: Negative Social History Social History: Negative Female( History) History: Not Applicable ROS Dictation CONSTITUTIONAL: Negative except for HPI HEAD/FACE: Negative except for HPI EENT: Negative except for HPI RESPIRATORY: Negative except for HPI GASTROINTESTINAL/ABDOMINAL: Negative except for HPI GENITOURINARY: Negative except for HPI MUSCULOSKELETAL: Negative except for HPI INTEGUMENTARY: Negative except for HPI NEUROLOGICAL/PSYCH: Negative except for HPI HEMATOLOGIC/LYMPHATIC: Negative except for HPI All Systems Negative, Except as noted above. 13 point review of systems assessed and all negative except for above. Physical Exam Physical Exam Dictation Vital Signs reviewed General Appearance: Alert, oriented x 3, no acute distress, well developed, nourished. Head and Face: non-traumatic. Eyes: PERRL, pink conjunctivas, eyelid no trauma, anterior chamber with arcus senilis. Ears: Pinnas intact and no signs of trauma or erythema ear canals clear and no discharge TM no erythema Nose: No discharge, no bleeding. Oropharynx: Mouth normal, tongue pink, pharynx clear,no erythema, tonsils no exudates, no abscesses noted, mucous membrane moist Neck: Supple, non-tender, no thyromegaly, no masses, no JVD, no bruits Breast:Deferred Chest:No tenderness, no crepitus, no paradoxical movement, no retractions Lungs:Clear, well-ventilated, symmetric, no rales, no wheezing, no rhonchi, no stridor, good breath sounds bilaterally Heart: Regular rate, regular rhythm, no murmur, no gallops Vascular: no peripheral edema, Abdomen: Soft, positive bowel sounds, nondistended, no guarding, nontender, no rebound, no masses no hepatomegaly, no splenomegaly, no Peralta's sign, no hernias. Rectal: Deferred Genital: Deferred Neurological: Normal speech, motor function intact, sensory function intact Musculoskeletal: Neck nontender, full range of motion, back nontender, full range of motion, Extremities: nontender, full range of motion Skin: Color pink, dry, no turgor, no rash, no lacerations, no abrasions, no contusions. Lymphatic: Deferred Results Laboratory and Microbiology Lab and Micro Result Laboratory Tests Test 03/05/25 19:11 White Blood Count 5.9 K/uL (4.8-10.8) Red Blood Count 3.90 MIL/uL (4.00-5.50) L Hemoglobin 11.5 g/dL (12.0-16.0) L Hematocrit 34.4 % (36-48) L Mean Corpuscular Volume 88.2 fL (79-99) Mean Corpuscular Hemoglobin 29.5 pg (27.0-33.0) Mean Corpuscular Hemoglobin Concent 33.4 g/dL (32.0-36.0) Red Cell Distribution Width 13.2 % (11.0-15.5) Platelet Count 268 K/uL (130-400) Mean Platelet Volume 9.7 fL (7.5-10.5) Immature Granulocyte % (Auto) 0.3 % (0-1) Neutrophils (%) (Auto) 74.7 % (40.0-77.0) Lymphocytes (%) (Auto) 14.1 % (21.0-51.0) L Monocytes (%) (Auto) 7.8 % (3.0-13.0) Eosinophils (%) (Auto) 2.2 % (0.0-8.0) Basophils (%) (Auto) 0.9 % (0.0-5.0) Neutrophils # (Auto) 4.4 K/uL (1.8-7.7) Lymphocytes # (Auto) 0.8 K/uL (1.0-4.8) L Monocytes # (Auto) 0.5 K/uL (0.1-1.0) Eosinophils # (Auto) 0.13 K/uL (0.00-0.70) Basophils # (Auto) 0.05 K/uL (0.00-0.20) Absolute Immature Granulocyte (auto 0.02 K/uL (0-1) Nucleated Red Blood Cells 0.0 % (0.0-0.19) Sodium Level 133 mmol/L (136-145) L Potassium Level 3.9 mmol/L (3.5-5.1) Chloride Level 96 mmol/L (101-111) L Carbon Dioxide Level 31 mmol/L (21-32) Blood Urea Nitrogen 16 mg/dL (7-18) Creatinine 0.7 mg/dL (0.5-1.0) Glomerular Filtration Rate Calc 91 mL/min (>90) Random Glucose 95 mg/dL (70-105) Total Calcium 8.3 mg/dL (8.5-10.1) L Troponin I High Sensitivity 8 ng/L (4-50) Labs Reviewed?: Yes MDM MDM: Differential diagnosis: Acute coronary syndrome, calcific tendinitis, fracture There are no social concerns with this patient. Prescription drug management Prescriptions will include: None Medical management and examination interpretation discussions were had by me with other qualified healthcare professionals as indicated for the patient's ca re. ED Course Orders Procedure Category Date Status Time 12 Lead Ekg Tracing- EKG 03/05/25 Logged Technical 18:54 Cbc With Differential LAB 03/05/25 Complete 18:54 Basic Metabolic Panel LAB 03/05/25 Complete 18:54 Troponin I High LAB 03/05/25 Complete Sensitivity 18:54 Shoulder Comp 2+Vws Lt RAD 03/05/25 Taken 19:03 Vital Signs Date Time Temp Pulse Resp B/P (MAP) Pulse Ox O2 Delivery O2 Flow Rate FiO2 03/05/25 18:30 99.0 80 18 140/72 100 Room Air* 0 21 03/05/25 18:21 99.0 80 18 140/72 100 Room Air 0 DX & DISP Disposition: Discharge Departure Impression: Primary Impression: Chronic left shoulder pain Condition: Stable Additional Instructions: Your blood work today is stable. Your troponin level which is a cardiac enzyme is normal. Your shoulder x-ray does not show any bone abnormality. Your pain appears to be musculoskeletal in nature. You need to follow up with your primary care doctor for possible outpatient MRI. Referrals: MIRELA TORRES (PCP) Time of Disposition: 19:51 I have reviewed the case, and I agree with, Diagnosis and Plan I performed the substantive portion of the visit. I have reviewed and personally made and approve the management plan that is documented in the note by myself or the GUERO. I acknowledge for responsibility for the patient's management plan. AVIS DENSON Mar 05, 2025 19:52
[2025-03-05 20:17] VITALS: BP 132/68; PULSE 78; RESP 18; TEMP 98.8; O2SAT 100
--- NOTE | 2025-03-05 20:19 | HMCIMG ---
EXAM: CR left Shoulder, 2 View. CLINICAL HISTORY: r/o fx vs calcific tendinitis COMPARISON: None provided. FINDINGS: BONES: No acute fracture or aggressive appearing osseous lesion. JOINTS: No dislocation. Mild acromioclavicular and glenohumeral joint osteoarthritis. SOFT TISSUES: The soft tissues are unremarkable. IMPRESSION: 1. No acute findings. /[place]
--- NOTE | 2025-03-06 07:48 | EKG ---
[facility] Test Date: 2025-03-06 Test Time: 03:45:20 Pat Name: [facility] Department: [facility] Room: Gender: F [employer]: [id number] : 1950 Requested By: AVIS DENSON Order Number: [id number] Reading MD: Alexandro Slater Measurements Intervals [place] Rate: 65 P: 45 VT: 156 QRS: 7 QRSD: 89 T: 22 QT: 373 QTc: 387 Interpretive Statements Sinus rhythm Compared to ECG 02/15/2025 08:36:34 Atrial premature complex(es) no longer present Right bundle-branch block no longer present Myocardial infarct finding no longer present Electronically Signed On 03-07-2025 19:48:03 CDT by Alexandro Slater Please click the below link to view image of tracing.
== END 2025-03-05 20:19 | disposition home or self-care (01) ==
LOC: EDH 18:19
DX: G89.29 Other chronic pain (principal); M25.512 Pain in left shoulder; E03.9 Hypothyroidism, unspecified; E78.00 Pure hypercholesterolemia, unspecified; I10 Essential (primary) hypertension; Z79.899 Other long term (current) drug therapy; Z85.3 Personal history of malignant neoplasm of breast; Z88.2 Allergy status to sulfonamides; Z95.5 Presence of coronary angioplasty implant and graft; Z98.890 Other specified postprocedural states
CPT/HCPCS: 36415; 73030; 80048; 84484; 85025; 93005; 99285